=== PATIENT | male | born 1985 | race Hispanic/Latino ===

== ENCOUNTER 2021-02-02 11:48 | Emergency (ER) | payer MEDICAID ==
[2021-02-02] MEDS ORDERED: Albuterol 200 PUFF (6.7GM INHALER) ONE (13:59)
[2021-02-02] MEDS ORDERED: Acetaminophen 500 MG TAB ONE (16:09)
[2021-02-02] MEDS ORDERED: Ibuprofen 200 MG TAB ONE (16:09)
== END 2021-02-02 15:54 | disposition home or self-care (01) ==
LOC: ERS 11:48
DX: U07.1 COVID-19 (principal)
CPT/HCPCS: 94664

== ENCOUNTER 2021-02-03 18:22 | Inpatient (IN) | payer OTHER, SELFPAY ==
[~2021-02-03 18:22] MED LIST: Iopamidol-370 76% 500 ML 1 ML ONE
[2021-02-03] MEDS ORDERED: Dexamethasone 10 MG/ML VIAL ONE (19:07)
[2021-02-03] MEDS ORDERED: Aspirin Chewable 81 MG TAB ONE (19:07)
[2021-02-03] MEDS ORDERED: cefTRIAXone\\ROCEPHIN 1 GM VIAL ONE (19:07)
[2021-02-03] MEDS ORDERED: Azithromycin 500 MG VIAL ONE (19:07)
[2021-02-03 19:15] LABS: #Lymphocytes 0.6 thou/uL (1.20-3.40); #Monocytes 0.3 thou/uL (0.11-0.59); #Neutrophils 10.8 thou/uL (1.40-6.50); %Basophils 0.4 % (0.0-1.0); %Eosinophils 0.1 % (0.0-10.0); %Lymphocytes 4.8 % (21.0-51.0); %Monocytes 2.2 % (0.0-10.0); %Neutrophils 92.6 % (42.0-75.0); Hemoglobin 17.4 g/dL (14.0-18.0); Mean Corpuscular Hemoglobin 31.4 pg (27.0-31.0); Mean Corpuscular Volume 95.2 fL (78.0-98.0); Platelet Count 462 thou/uL (130-400); RBC Distribution Width 11.6 % (11.5-14.5); Red Blood Cell (RBC) Count 5.53 mill/uL (4.70-6.10); White Blood Cell (WBC) Count 11.6 thou/uL (4.8-10.8)
[2021-02-03] MEDS ORDERED: Enoxaparin Sodium 100 MG/ML SYRINGE ONE (19:42)
[2021-02-03 19:58] LABS: ALT (SGPT) 109 U/L (8-55); AST (SGOT) 89 U/L (5-34); Albumin 4.1 g/dL (3.5-5.0); Alkaline Phosphatase 143 U/L (40-110); Anion Gap 19 mmol/L (10-20); BUN (Urea Nitrogen) 12 mg/dL (8.9-20.6); Bilirubin, Total 0.7 mg/dL (0.2-1.2); CK (CPK) 148 U/L (30-200); Calc. Creatinine Clearance 0 mL/min (70-130); Calcium 9.6 mg/dL (7.8-10.44); Carbon Dioxide 24 mmol/L (22-29); Chloride 97 mmol/L (98-107); Globulin 4.6 g/dL (2.4-3.5); Glucose 132 mg/dL (70-105); Lipase 113 U/L (8-78); Protein, Total 8.7 g/dL (6.0-8.3); Sodium 136 mmol/L (136-145)
[2021-02-03] MEDS ORDERED: Rocuronium Bromide 10 MG/ML (10ML VIAL) ONE (21:15)
[2021-02-03] MEDS ORDERED: Fentanyl CADD 100 ML IV SCH ×2 (21:45→23:30)
[2021-02-03 21:48] LABS: Actual Bicarbonate (HCO3a) 24.7 mEq/L (22-28); Analyzer IN Cardio ER; Base Excess (BEa) -2.2 mEq/L (-2.0 to +3.0); CO2 Tension 49.9 mmHg (35.0-45.0); Calcium, Ionized (arterial) 1.14 mmol/L (1.12-1.30); Carboxyhemoglobin (COHb) 0.2 gm% (0.0-3.0); Hemoglobin (Hb) 16.3 g/dL (14.0-18.0); O2 Tension (PaO2), arterial 75.6 mmHg (80.0-100.0); Potassium - ABG Lab 3.72 mmol/L (3.70-5.30); pH, Arterial 7.31 (7.35-7.45)
[2021-02-03 21:50] LABS: ALV-art Gradient 575.025 mmHg (0-20); Puncture Site RRA
[2021-02-03] MEDS ORDERED: Ondansetron ODT 4 MG TAB PO PRN (22:55)
[2021-02-03] MEDS ORDERED: Acetaminophen 650 MG Suppository PR PRN (22:55)
[2021-02-03] MEDS ORDERED: Acetaminophen 325 MG TAB PO PRN (22:55)
[2021-02-03] MEDS ORDERED: Ondansetron PF 4 MG/2 ML Vial IVP PRN (22:55)
[2021-02-03] MEDS ORDERED: Propofol 1,000 MG/100 ML VIAL IV ONE (22:57)
[2021-02-03] MEDS ORDERED: Enoxaparin Sodium 40 MG/0.4 ML SYRINGE SC SCH (23:00)
[2021-02-03] MEDS ORDERED: Ventilator Sedation Protocol 1 EACH FS SCH (23:00)
[2021-02-03] MEDS ORDERED: Morphine 2 MG/ML VIAL SLOW IVP PRN (23:30)
[2021-02-03] MEDS ORDERED: DISCONTINUE PREVIOUS NARCOTIC PAIN MEDICATIONS AND BENZODIAZEPINES FS SCH (23:30)
[2021-02-03] MEDS ORDERED: Lorazepam 2 MG/ML VIAL SLOW IVP PRN (23:30)
[2021-02-04] MEDS ORDERED: Furosemide 40 MG/4 ML VIAL SLOW IVP SCH (01:00)
[2021-02-04] MEDS ORDERED: Furosemide 20 MG/2 ML VIAL ONE (01:08)
[2021-02-04] MEDS ORDERED: Propofol 1,000 MG/100 ML VIAL IV ONE ×6 (01:16→20:02)
[2021-02-04] MEDS: Fentanyl BOLUS 250 ML IVPB PRN ×2 (01:20→06:13)
[2021-02-04] MEDS: Propofol 1,000 MG/100 ML VIAL IV PRN ×3 (01:23→20:00)
[2021-02-04] MEDS: Propofol BOLUS 1,000 MG/100 ML VIAL IV PRN (02:54)
[2021-02-04 06:15] LABS: #Lymphocytes 0.6 thou/uL (1.20-3.40); #Monocytes 0.3 thou/uL (0.11-0.59); #Neutrophils 5.9 thou/uL (1.40-6.50); %Eosinophils 0.1 % (0.0-10.0); %Lymphocytes 8.5 % (21.0-51.0); %Monocytes 3.7 % (0.0-10.0); %Neutrophils 87.7 % (42.0-75.0); Hemoglobin 14.8 g/dL (14.0-18.0); Mean Corpuscular HGB CONC 32.8 g/dL (32.0-36.0); Mean Corpuscular Hemoglobin 31.5 pg (27.0-31.0); Mean Corpuscular Volume 96.1 fL (78.0-98.0); Platelet Count 426 thou/uL (130-400); RBC Distribution Width 11.5 % (11.5-14.5); White Blood Cell (WBC) Count 6.7 thou/uL (4.8-10.8)
[2021-02-04 06:35] LABS: Anion Gap 13 mmol/L (10-20); BUN (Urea Nitrogen) 14 mg/dL (8.9-20.6); Calc. Creatinine Clearance 77 mL/min (70-130); Calcium 8.3 mg/dL (7.8-10.44); Carbon Dioxide 26 mmol/L (22-29); Chloride 103 mmol/L (98-107); Glucose 151 mg/dL (70-105); Potassium 4.2 mmol/L (3.5-5.1); Sodium 138 mmol/L (136-145)
[2021-02-04 09:03] LABS: Actual Bicarbonate (HCO3a) 26.2 mEq/L (22-28); Analyzer IN Cardio ER; Base Excess (BEa) 0.8 mEq/L (-2.0 to +3.0); CO2 Tension 44.7 mmHg (35.0-45.0); Calcium, Ionized (arterial) 1.18 mmol/L (1.12-1.30); Carboxyhemoglobin (COHb) 0.3 gm% (0.0-3.0); Potassium - ABG Lab 4.11 mmol/L (3.70-5.30); pH, Arterial 7.39 (7.35-7.45)
[2021-02-04] MEDS ORDERED: Enoxaparin Sodium 40 MG/0.4 ML SYRINGE ONE ×2 (09:06→22:29)
[2021-02-04] MEDS ORDERED: Dexamethasone 4 mg/ml Vial ONE (09:06)
[2021-02-04 09:12] LABS: O2 Tension (PaO2), arterial 59.7 mmHg (80.0-100.0)
[2021-02-04 09:13] LABS: Puncture Site LRA
[2021-02-04] MEDS: Enoxaparin Sodium 40 MG/0.4 ML SYRINGE SC SCH ×2 (09:13→22:28)
[2021-02-04] MEDS: Dexamethasone 10 MG/ML VIAL SLOW IVP SCH (09:13)
[2021-02-04 09:15] LABS: ALV-art Gradient 597.425 mmHg (0-20)
[2021-02-04] MEDS: Zinc Sulfate 220 MG CAP PO SCH (09:30)
[2021-02-04] MEDS: Cholecalciferol (Vitamin D3) 400 UNITS TAB PO SCH (09:30)
[2021-02-04] MEDS: Ascorbic Acid 500 mg Chewable Tablet PO SCH (09:30)
[2021-02-04] MEDS ORDERED: Zinc Sulfate 220 MG CAP ONE (09:50)
[2021-02-04] MEDS ORDERED: Ascorbic Acid 500 mg Chewable Tablet ONE (09:50)
[2021-02-04] MEDS ORDERED: Lorazepam 2 MG/ML VIAL ONE (10:34)
[2021-02-04] MEDS ORDERED: Lorazepam 2 MG/ML VIAL SLOW IVP PRN (10:51)
[2021-02-04] MEDS ORDERED: Fentanyl CADD 100 ML IV SCH (11:00)
[2021-02-04 16:15] LABS: Actual Bicarbonate (HCO3a) 26.1 mEq/L (22-28); Analyzer IN Cardio ER; Base Excess (BEa) 1.4 mEq/L (-2.0 to +3.0); CO2 Tension 41.5 mmHg (35.0-45.0); Calcium, Ionized (arterial) 1.19 mmol/L (1.12-1.30); Carboxyhemoglobin (COHb) 0.3 gm% (0.0-3.0); Hemoglobin (Hb) 15.8 g/dL (14.0-18.0); Potassium - ABG Lab 3.81 mmol/L (3.70-5.30); Puncture Site RRA; pH, Arterial 7.42 (7.35-7.45)
[2021-02-04 16:16] LABS: ALV-art Gradient 311.925 mmHg (0-20)
[2021-02-04 19:29] LABS: Actual Bicarbonate (HCO3a) 28.8 mEq/L (22-28); Analyzer IN Cardio ER; Base Excess (BEa) 2.8 mEq/L (-2.0 to +3.0); CO2 Tension 48.7 mmHg (35.0-45.0); Carboxyhemoglobin (COHb) 0.3 gm% (0.0-3.0); Hemoglobin (Hb) 15.5 g/dL (14.0-18.0); Potassium - ABG Lab 3.87 mmol/L (3.70-5.30); pH, Arterial 7.39 (7.35-7.45)
[2021-02-04 19:30] LABS: O2 Tension (PaO2), arterial 55.1 mmHg (80.0-100.0); Puncture Site RRA
[2021-02-04 19:33] LABS: ALV-art Gradient 311.825 mmHg (0-20)
[2021-02-04] MEDS ORDERED: Pharmacy to Dose REMDESIVIR IVPB PRN (19:42)
[2021-02-04] MEDS: Fentanyl CADD 100 ML IV SCH (23:00)
[2021-02-05] MEDS ORDERED: Propofol 1,000 MG/100 ML VIAL IV ONE ×5 (01:02→21:41)
[2021-02-05] MEDS: Propofol 1,000 MG/100 ML VIAL IV PRN ×3 (01:13→21:44)
[2021-02-05 04:37] LABS: #Lymphocytes 0.7 thou/uL (1.20-3.40); #Monocytes 0.8 thou/uL (0.11-0.59); #Neutrophils 11.4 thou/uL (1.40-6.50); %Basophils 0.2 % (0.0-1.0); %Eosinophils 0.1 % (0.0-10.0); %Lymphocytes 5.7 % (21.0-51.0); %Monocytes 6.1 % (0.0-10.0); Hemoglobin 15.1 g/dL (14.0-18.0); Mean Corpuscular HGB CONC 32.5 g/dL (32.0-36.0); Mean Corpuscular Hemoglobin 31.5 pg (27.0-31.0); Mean Corpuscular Volume 96.7 fL (78.0-98.0); Mean Platelet Volume 7.7 fL (7.4-10.4); Platelet Count 477 thou/uL (130-400); RBC Distribution Width 11.5 % (11.5-14.5); Red Blood Cell (RBC) Count 4.81 mill/uL (4.70-6.10); White Blood Cell (WBC) Count 12.9 thou/uL (4.8-10.8)
[2021-02-05 07:01] LABS: ALT (SGPT) 77 U/L (8-55); AST (SGOT) 51 U/L (5-34); Albumin 3.2 g/dL (3.5-5.0); Alkaline Phosphatase 96 U/L (40-110); Anion Gap 14 mmol/L (10-20); BUN (Urea Nitrogen) 16 mg/dL (8.9-20.6); Bilirubin, Total 0.4 mg/dL (0.2-1.2); Calc. Creatinine Clearance 191 mL/min (70-130); Calcium 8.8 mg/dL (7.8-10.44); Carbon Dioxide 27 mmol/L (22-29); Chloride 104 mmol/L (98-107); Globulin 3.4 g/dL (2.4-3.5); Glucose 159 mg/dL (70-105); Magnesium 2.7 mg/dL (1.6-2.6); Phosphorus 4.3 mg/dL (2.3-4.7); Potassium 4.8 mmol/L (3.5-5.1); Protein, Total 6.6 g/dL (6.0-8.3); Sodium 140 mmol/L (136-145)
[2021-02-05] MEDS ORDERED: Ascorbic Acid 500 mg Chewable Tablet ONE (07:45)
[2021-02-05] MEDS ORDERED: Zinc Sulfate 220 MG CAP ONE (07:45)
[2021-02-05] MEDS ORDERED: Enoxaparin Sodium 40 MG/0.4 ML SYRINGE ONE ×2 (07:45→21:57)
[2021-02-05 08:12] LABS: Actual Bicarbonate (HCO3a) 28.7 mEq/L (22-28); Analyzer IN Cardio ER; Calcium, Ionized (arterial) 1.21 mmol/L (1.12-1.30); Hemoglobin (Hb) 15.8 g/dL (14.0-18.0); Potassium - ABG Lab 4.09 mmol/L (3.70-5.30); pH, Arterial 7.36 (7.35-7.45)
[2021-02-05 08:16] LABS: Puncture Site LRA
[2021-02-05] MEDS: Cholecalciferol (Vitamin D3) 400 UNITS TAB PO SCH (08:24)
[2021-02-05] MEDS: Ascorbic Acid 500 mg Chewable Tablet PO SCH (08:24)
[2021-02-05] MEDS: Zinc Sulfate 220 MG CAP PO SCH (08:24)
[2021-02-05] MEDS: Enoxaparin Sodium 40 MG/0.4 ML SYRINGE SC SCH ×2 (08:24→22:01)
[2021-02-05] MEDS: Dexamethasone 10 MG/ML VIAL SLOW IVP SCH ×2 (08:24→22:01)
[2021-02-05 13:37] VITALS: BMI 30.9
[2021-02-05] MEDS: Fentanyl BOLUS 250 ML IVPB PRN (17:34)
[2021-02-05] MEDS: Propofol BOLUS 1,000 MG/100 ML VIAL IV PRN (17:35)
[2021-02-05] MEDS ORDERED: Dexamethasone 4 mg/ml Vial ONE ×3 (21:58→21:59)
[2021-02-05] MEDS: Fentanyl CADD 100 ML IV SCH (22:15)
[2021-02-06] MEDS ORDERED: Propofol 1,000 MG/100 ML VIAL IV ONE ×2 (03:33→12:14)
[2021-02-06] MEDS: Propofol 1,000 MG/100 ML VIAL IV PRN (04:00)
[2021-02-06 06:24] LABS: #Lymphocytes 0.5 thou/uL (1.20-3.40); #Monocytes 0.6 thou/uL (0.11-0.59); #Neutrophils 9.3 thou/uL (1.40-6.50); %Basophils 0.2 % (0.0-1.0); %Eosinophils 0.1 % (0.0-10.0); %Lymphocytes 5.1 % (21.0-51.0); %Monocytes 5.4 % (0.0-10.0); %Neutrophils 89.2 % (42.0-75.0); Hemoglobin 14.8 g/dL (14.0-18.0); Mean Corpuscular Hemoglobin 32.1 pg (27.0-31.0); Mean Corpuscular Volume 97.2 fL (78.0-98.0); Mean Platelet Volume 7.6 fL (7.4-10.4); Platelet Count 531 thou/uL (130-400); RBC Distribution Width 11.5 % (11.5-14.5); Red Blood Cell (RBC) Count 4.61 mill/uL (4.70-6.10); White Blood Cell (WBC) Count 10.4 thou/uL (4.8-10.8)
[2021-02-06 06:49] LABS: ALT (SGPT) 85 U/L (8-55); AST (SGOT) 54 U/L (5-34); Alkaline Phosphatase 83 U/L (40-110); Anion Gap 12 mmol/L (10-20); BUN (Urea Nitrogen) 21 mg/dL (8.9-20.6); Bilirubin, Total 0.4 mg/dL (0.2-1.2); Calc. Creatinine Clearance 188 mL/min (70-130); Calcium 8.7 mg/dL (7.8-10.44); Carbon Dioxide 30 mmol/L (22-29); Chloride 106 mmol/L (98-107); Globulin 2.8 g/dL (2.4-3.5); Glucose 160 mg/dL (70-105); Magnesium 2.6 mg/dL (1.6-2.6); Phosphorus 4.2 mg/dL (2.3-4.7); Protein, Total 5.8 g/dL (6.0-8.3); Sodium 143 mmol/L (136-145)
[2021-02-06 07:29] LABS: Actual Bicarbonate (HCO3a) 29.9 mEq/L (22-28); Analyzer IN Cardio ER; Base Excess (BEa) 3.9 mEq/L (-2.0 to +3.0); CO2 Tension 50.1 mmHg (35.0-45.0); Calcium, Ionized (arterial) 1.19 mmol/L (1.12-1.30); Carboxyhemoglobin (COHb) 0.3 gm% (0.0-3.0); Hemoglobin (Hb) 14.9 g/dL (14.0-18.0); O2 Tension (PaO2), arterial 85.9 mmHg (80.0-100.0); Potassium - ABG Lab 4.52 mmol/L (3.70-5.30); pH, Arterial 7.39 (7.35-7.45)
[2021-02-06 07:36] LABS: Puncture Site RRA
[2021-02-06 07:37] LABS: ALV-art Gradient 279.275 mmHg (0-20)
[2021-02-06] MEDS ORDERED: Dexamethasone 10 MG/ML VIAL ONE (07:57)
[2021-02-06] MEDS ORDERED: Enoxaparin Sodium 40 MG/0.4 ML SYRINGE ONE (07:57)
[2021-02-06] MEDS ORDERED: Zinc Sulfate 220 MG CAP ONE (07:59)
[2021-02-06] MEDS: Zinc Sulfate 220 MG CAP PO SCH (09:15)
[2021-02-06] MEDS: Dexamethasone 10 MG/ML VIAL SLOW IVP SCH (09:15)
[2021-02-06] MEDS: Enoxaparin Sodium 40 MG/0.4 ML SYRINGE SC SCH (09:15)
[2021-02-06] MEDS: Ascorbic Acid 500 mg Chewable Tablet PO SCH (09:15)
[2021-02-06] MEDS: Cholecalciferol (Vitamin D3) 400 UNITS TAB PO SCH (09:15)
[2021-02-06 11:19] VITALS: BP 121/70; TEMP 96.1
== END 2021-02-06 15:53 | disposition home or self-care (01) | DRG 208 ==
LOC: ERS 18:22 → ERHOLD 22:18
PROVIDERS: ADMIT Student in an Organized Health Care Education/Training Program; ATTEND Internal Medicine
PROC: 0D9670Z Drainage of Stomach with Drainage Device, Via Natural or Artificial Opening (ICD-10-PCS; principal; 2021-02-03)
PROC: 5A1945Z Respiratory Ventilation, 24-96 Consecutive Hours (ICD-10-PCS; 2021-02-03)
PROC: 0BH17EZ Insertion of Endotracheal Airway into Trachea, Via Natural or Artificial Opening (ICD-10-PCS; 2021-02-03)
PROC: 8E0ZXY6 Isolation (ICD-10-PCS; 2021-02-03)
PROC: 5A09357 Assistance with Respiratory Ventilation, Less than 24 Consecutive Hours, Continuous Positive Airway Pressure (ICD-10-PCS; 2021-02-03)
PROC: XW033H5 Introduction of Tocilizumab into Peripheral Vein, Percutaneous Approach, New Technology Group 5 (ICD-10-PCS; 2021-02-03)
PROC: 3E0333Z Introduction of Anti-inflammatory into Peripheral Vein, Percutaneous Approach (ICD-10-PCS; 2021-02-04)
DX: U07.1 COVID-19 (principal); J12.82 Pneumonia due to coronavirus disease 2019; J80 Acute respiratory distress syndrome; R94.5 Abnormal results of liver function studies; T68.XXXA Hypothermia, initial encounter; R00.1 Bradycardia, unspecified; Z79.899 Other long term (current) drug therapy; T42.75XA Adverse effect of unspecified antiepileptic and sedative-hypnotic drugs, initial encounter; Y92.230 Patient room in hospital as the place of occurrence of the external cause
CPT/HCPCS: 31500; 36415; 36416; 36600; 51702; 71045; 71275; 80048; 80053; 82550; 82805; 83690; 83735; 83880; 84100; 84484; 85025; 85379; 86140; 93005; 94002; 94003; 94760; 96365; 96375; 99292; J0456; J0696; J1100; J1650; J1940; J2060; J2704; J3010; J3490; M0249; Q0249; Q9967